=== PATIENT | male | born 1970 | race Hispanic/Latino ===

== ENCOUNTER 2019-11-19 03:20 | Emergency (ER) | payer BC, SELFPAY ==
[2019-11-19] MEDS ORDERED: diphenhydrAMINE 25 MG CAP ONE (03:46)
[2019-11-19] MEDS ORDERED: Metoclopramide HCl 10 MG/2 ML VIAL ONE (03:46)
[2019-11-19] MEDS ORDERED: Ketorolac Tromethamine 30 MG/ML VIAL ONE (03:46)
[2019-11-19] MEDS ORDERED: diphenhydrAMINE 50 MG/ML VIAL ONE (03:47)
== END 2019-11-19 05:15 | disposition home or self-care (01) ==
LOC: ERS 03:20
DX: R51 Headache (principal); E78.5 Hyperlipidemia, unspecified; R11.0 Nausea
CPT/HCPCS: 96365; 96375; J1200; J1885; J2765; Q0163